=== PATIENT | male | born 1965 | race Caucasian/White ===

== ENCOUNTER 2018-09-28 17:42 | Emergency (ER) | payer BC ==
--- NOTE | 2018-09-28 17:46 | PDOC ---
Rapid Medical Evaluation Time Seen by Provider: 09/28/18 17:44 Medical Evaluation: Allergies Allergy/AdvReac Type Severity Reaction Status Date / Time No Known Allergies Allergy Verified 05/25/13 17:31 09/28/18 17:44 HPI:L eye pain and headache x2 days EXAM: No gross deficits ORDERS: CT scan Discharge Disposition - Diagnosis Headache - Referrals - Patient Instructions - Post Discharge Activity
[2018-09-28 17:50] VITALS: BP 150/81; PULSE 79; TEMP 97.8; BMI 30.7
--- NOTE | 2018-09-28 19:21 | PDOC ---
History of Present Illness - General Chief Complaint: Headache Stated Complaint: HEADACHE Time Seen by Provider: 09/28/18 17:44 History Source: Patient Exam Limitations: No Limitations - History of Present Illness Initial Comments: 09/28/18 19:18 Chief complaint: Headache Patient 53-year-old male with no significant medical history who states he was lifting weights earlier today, was lifting 370 pounds, and felt a pull on the left side of his head. Patient had pain when he would move his head. No visual disturbances. No nausea, no dizziness, no neurological symptoms. Patient states that he feels better now. GENERAL/CONSTITUTIONAL: No fever, weakness. dizziness HEAD, EYES, EARS, NOSE AND THROAT: No change in vision. No ear pain or discharge. No sore throat. CARDIOVASCULAR: No chest pain RESPIRATORY: No shortness of breath or cough GASTROINTESTINAL: No pain, nausea, vomiting, diarrhea or constipation GENITOURINARY: No dysuria MUSCULOSKELETAL: No neck or back pain SKIN: No rash NEUROLOGIC: No headache, vertigo, loss of consciousness, or loss of sensation. GENERAL: The patient is awake, alert, and fully oriented, in no acute distress. HEAD: Normal with no signs of trauma. EYES: Pupils equal, round and reactive to light, sclera anicteric, conjunctiva clear. EOMs intact, fundus grossly normal ENT: pharynx: no erythema, no exudate, uvula midline NECK: supple CHEST: clear, nontender, rr ABD: soft, nontender EXTREMITIES: Normal range of motion, no edema. NEUROLOGICAL: Cranial nerves II through XII grossly intact, no focal abnormalities, alert and oriented 3 SKIN: Warm, Dry Past History - Past Medical History Allergies/Adverse Reactions: Allergies Allergy/AdvReac Type Severity Reaction Status Date / Time No Known Allergies Allergy Verified 09/28/18 17:46 Home Medications: Ambulatory Orders NK [No Known Home Medication] 09/28/18 COPD: No - Suicide/Smoking/Psychosocial Hx Smoking History: Never smoked Have you smoked in the past 12 months: No Number of Cigarettes Smoked Daily: 0 Information on smoking cessation initiated: No Hx Alcohol Use: No Drug/Substance Use Hx: No *Physical Exam - Vital Signs Last Vital Signs Temp Pulse Resp BP Pulse Ox 97.8 F 79 16 150/81 100 09/28/18 17:46 09/28/18 17:46 09/28/18 17:46 09/28/18 17:46 09/28/18 17:46 Medical Decision Making - Medical Decision Making 09/28/18 19:20 Patient who was lifting weights and felt a pull to his head, throbbing headache with movement, which has resolved. No visual disturbance. Head CT was ordered from triage. Patient is neurologically intact. There is no signs of dissection or optical issue. CT is negative, except for chronic sinusitis, no indication for antibiotics Discussed issues, findings, results, applicable medications and treatments and follow-up. All these were understood and all questions were answered 09/28/18 20:38 *DC/Admit/Observation/Transfer Diagnosis at time of Disposition: Headache Qualifiers: Headache type: unspecified Headache chronicity pattern: acute headache Intractability: not intractable Qualified Code(s): R51 - Headache - Discharge Dispostion Disposition: HOME Condition at time of disposition: Stable Decision to Admit order: No - Referrals Referrals: Gelacio Acuña MD [Primary Care Provider] - Ankur Pierre MD [Staff Physician] - - Patient Instructions Additional Instructions: Do not go to the gym for at least a week. Follow-up with the ENT doctor regarding the findings on CT for chronic sinusitis and snoring. Return to the ER if severe headache, neurological symptoms, vomiting she will issues or any other concerns - Post Discharge Activity
== END 2018-09-28 20:51 | disposition home or self-care (01) ==
LOC: JERFT 17:42
DX: R51 Headache (principal); J32.8 Other chronic sinusitis
CPT/HCPCS: 70450-TC; 99281-25

== ENCOUNTER 2022-05-12 08:18 | Emergency (ER) | payer BC ==
[2022-05-12 08:22] VITALS: BP 147/85; PULSE 90; RESP 19; TEMP 97.9; BMI 30.7
== END 2022-05-12 09:37 | disposition home or self-care (01) ==
LOC: JER 08:18
DX: M79.10 Myalgia, unspecified site (principal); R05.1 Acute cough
CPT/HCPCS: 0241U-QW; 99283-25

== ENCOUNTER 2022-10-16 17:05 | Emergency (ER) | payer BC ==
[2022-10-16 17:23] VITALS: TEMP 97.5; BMI 32.5
[2022-10-16] MEDS ORDERED: SODIUM CHLORIDE 0.9% 500 ML INFUS.BAG IV ONE (18:04)
[2022-10-16 18:23] LABS: BASO % 0.4 % (0-2.0); EOS % 2.2 % (0-4.5); HEMATOCRIT 41.4 % (35.4-49); HEMOGLOBIN 13.7 GM/dL (11.7-16.9); LYMPH % 28.4 % (8-40); MCH 27.4 pg (25.7-33.7); MCHC 33.2 g/dl (32.0-35.9); MEAN CELL VOLUME 82.6 fl (80-96); MEAN PLT VOLUME 7.5 fl (7.5-11.1); MONO % 7.5 % (3.8-10.2); NEUT % 61.5 % (42.8-82.8); PLATELET COUNT 244 10^3/uL (134-434); RBC 5.01 M/mm3 (4.00-5.60); WHITE BLOOD COUNT 6.9 K/mm3 (4.0-10.0)
[2022-10-16 18:42] LABS: ACTIVATED PTT 34.2 SECONDS (25.2-36.5); INR 1.03 (0.83-1.09)
[2022-10-16 18:45] LABS: ALBUMIN 3.7 g/dl (3.4-5.0); BLOOD UREA NITROGEN 24.2 mg/dL (7-18)
[2022-10-16 18:47] LABS: CREATININE 1.1 mg/dL (0.55-1.3)
[2022-10-16 18:49] LABS: BILIRUBIN,TOTAL 0.4 mg/dL (0.2-1); TOT PROT 7.6 g/dl (6.4-8.2)
[2022-10-16 19:18] VITALS: BP 158/82; PULSE 73; RESP 18
== END 2022-10-16 19:18 | disposition home or self-care (01) ==
LOC: JER 17:05
DX: R07.9 Chest pain, unspecified (principal); R00.2 Palpitations
CPT/HCPCS: 36415; 71046-TC-FY; 80053; 84443; 84484; 85025; 85610; 85730; 93005; 93010; 99285-25

== ENCOUNTER 2023-07-05 10:34 | Emergency (ER) | payer BC ==
[2023-07-05 10:49] VITALS: BP 148/90; PULSE 78; RESP 18; TEMP 97.6; BMI 33.0
== END 2023-07-05 12:24 | disposition home or self-care (01) ==
LOC: JERFT 10:34 → JER 10:34 → JERFT 12:24
DX: H10.13 Acute atopic conjunctivitis, bilateral (principal); J31.0 Chronic rhinitis
CPT/HCPCS: 99283-25

== ENCOUNTER 2023-10-06 18:48 | Emergency (ER) | payer BC ==
[2023-10-06 19:00] VITALS: PULSE 82; RESP 18; TEMP 97; BMI 33.7
[2023-10-06] MEDS ORDERED: KETOROLAC TROMETHAMINE 15 MG/ML VIAL ONE (20:44)
[2023-10-06] MEDS: KETOROLAC TROMETHAMINE 15 MG/ML VIAL IVPUSH ONE (20:55)
[2023-10-06] MEDS: KETOROLAC TROMETHAMINE 15 MG/ML VIAL IM ONE (20:55)
[2023-10-06 21:47] VITALS: BP 102/53
[2023-10-06] MEDS ORDERED: LIDOCAINE 5% TOPICAL PATCH ONE (21:54)
[2023-10-06] MEDS: LIDOCAINE 5% TOPICAL PATCH TP ONE (22:03)
[2023-10-06] MEDS: LIDOCAINE PATCH REMOVAL MC SCH (22:03)
== END 2023-10-06 22:04 | disposition home or self-care (01) ==
LOC: JER 18:48
PROC: 3E0233Z Introduction of Anti-inflammatory into Muscle, Percutaneous Approach (ICD-10-PCS; principal; 2023-10-06)
DX: M25.511 Pain in right shoulder (principal); M19.011 Primary osteoarthritis, right shoulder; M75.21 Bicipital tendinitis, right shoulder
CPT/HCPCS: 73030-TC-RT-FY; 99284-25

== ENCOUNTER 2024-08-22 14:29 | Emergency (ER) | payer BC ==
[2024-08-22] MEDS ORDERED: ACETAMINOPHEN INJECTION 100 ML ONE (15:09)
[2024-08-22 15:13] VITALS: BMI 32.3
[2024-08-22] MEDS: ACETAMINOPHEN 1000 MG/100 ML BAG IVPB ONE (15:26)
[2024-08-22] MEDS: LACTATED RINGERS SOLUTION 1000 ML INFUS.BAG IV ONE (15:26)
[2024-08-22 15:44] LABS: ABSOLUTE IMMATURE GRANULOCYTES 0.06 x10^3/uL (0.0-0.031); BASOPHILS # 0.02 x10^3/uL (0.01-0.08); HEMATOCRIT 41.6 % (40.1-51.0); HEMOGLOBIN 13.4 g/dL (13.7-17.5); MCHC 32.2 g/dl (32.3-36.5); MEAN PLT VOLUME 9.6 fl (9.4-12.4); MONOCYTE # 0.63 x10^3/uL (0.30-0.82); MONOCYTE % 4.7 % (5.3-12.2); PLATELET COUNT # 237 x10^3/uL (163-337); RDW 12.6 % (12.2-16.1)
[2024-08-22 16:03] LABS: POTASSIUM 5.8 mmol/L (3.5-5.1)
[2024-08-22 16:05] LABS: BLOOD UREA NITROGEN 16.7 mg/dL (7-18)
[2024-08-22 16:06] LABS: ALBUMIN 3.5 g/dl (3.4-5.0); MAGNESIUM 1.7 mg/dL (1.8-2.4)
[2024-08-22 16:10] LABS: BILIRUBIN,TOTAL 0.5 mg/dL (0.2-1); TOT PROT 7.8 g/dl (6.4-8.2)
[2024-08-22 16:15] LABS: THROAT:GRP A STREP NOT DETECTED (NOTDETECTED)
[2024-08-22] MEDS: SODIUM CHLORIDE 0.9% 500 ML INFUS.BAG IV ONE (16:51)
[2024-08-22] MEDS: KETOROLAC TROMETHAMINE 15 MG/ML VIAL IVPUSH ONE (16:51)
[2024-08-22] MEDS ORDERED: KETOROLAC TROMETHAMINE 15 MG/ML VIAL ONE (16:53)
[2024-08-22] MEDS ORDERED: MAGNESIUM SULFATE IN WATER 2 GM/50 ML IVPB IVPB ONE (17:38)
[2024-08-22] MEDS: MAGNESIUM SULFATE IN WATER 2 GM/50 ML IVPB IVPB ONE (17:47)
[2024-08-22 18:21] VITALS: BP 117/71; PULSE 93; RESP 18; TEMP 98.3
[2024-08-22 19:21] LABS: POTASSIUM 3.4 mmol/L (3.5-5.1)
[2024-08-22 19:23] LABS: BLOOD UREA NITROGEN 13.6 mg/dL (7-18); CALCIUM 8.6 mg/dL (8.5-10.1)
[2024-08-22 19:26] LABS: CREATININE 0.8 mg/dL (0.55-1.3)
== END 2024-08-22 20:51 | disposition home or self-care (01) ==
LOC: JER 14:29
PROC: 3E033GC Introduction of Other Therapeutic Substance into Peripheral Vein, Percutaneous Approach (ICD-10-PCS; principal; 2024-08-22)
PROC: 3E033NZ Introduction of Analgesics, Hypnotics, Sedatives into Peripheral Vein, Percutaneous Approach (ICD-10-PCS; 2024-08-22)
PROC: 3E0333Z Introduction of Anti-inflammatory into Peripheral Vein, Percutaneous Approach (ICD-10-PCS; 2024-08-22)
DX: R07.0 Pain in throat (principal); R50.9 Fever, unspecified; R53.1 Weakness; B34.9 Viral infection, unspecified
CPT/HCPCS: 0241U-QW; 36415; 71045-TC-FY; 80048; 80053; 82962; 83735; 84484; 85025; 87651; 93005; 93010; 99285-25; J0131